=== PATIENT | female | born 1965 | race Caucasian/White ===

== ENCOUNTER 2016-07-23 14:36 | Emergency (ER) | payer MEDICARE, MEDICAID ==
--- NOTE | ~2016-07-23 | ER ---
PATIENT'S NAME: ROCKY CHRISTOPHER [facility] AGE: 51 Y [address] ROOM: [place] [address] LOCATION: [facility] ADMIT DATE: 07/23/2016 ER/Outpatient Report DISCHARGE DATE: 07/23/2016 FAMILY PHYSICIAN: Eusebia Harry MD ATTENDING PHYSICIAN: Denny Wahl TIME OF ARRIVAL: 1435 hours. TIME OF EXAM: 1435 hours. CHIEF COMPLAINT: Chest pain. HISTORY OF PRESENT ILLNESS: The patient arrived per [facility], IV was in place, she was given aspirin x4, nitroglycerin sublingual x1, and Ativan 0.5 mg IV enroute. The patient states she has left-sided chest pain that goes into her left arm for the past 2 days. She described it as a pressure. It does not cause her to be short of breath. She has not been dizzy or lightheaded. She was hospitalized recently with exhaustion, dehydration, depression, and suicidal concerns. She states she was talking to her psych nurse today and they were concerned regarding the chest pain and wanted the patient to have it evaluated. ALLERGIES: CELEBREX, TORADOL, AND TRAMADOL. PAST MEDICAL HISTORY: Asthma, depression, anxiety with panic disorders, exhaustion, suicidal ideation, and fibromyalgia. PAST SURGICAL HISTORY: Cholecystectomy with ERCP, left hand, left wrist. SOCIAL HISTORY: The patient lives alone. Denies use of drugs, tobacco, or alcohol. REVIEW OF SYSTEMS: All negative other than those mentioned in the HPI. PHYSICAL EXAMINATION: VITAL SIGNS: She weighed 97.1 kg. Blood pressure is 128/69, pulse of 96, respirations 20, temp of 98, and O2 sat was 97% on room air. [place] Coma Scale is 15. PATIENT'S NAME: JOCELINE CHRISTOPHERRY Gail [facility] AGE: 51 Y [address] ROOM: [place] [address] LOCATION: [facility] ADMIT DATE: 07/23/2016 ER/Outpatient Report DISCHARGE DATE: 07/23/2016 FAMILY PHYSICIAN: Eusebia Harry MD ATTENDING PHYSICIAN: Denny Wahl GENERAL: She is awake, alert, and oriented x4. SKIN: [place], warm, and dry. RESPIRATIONS: Even and nonlabored. LUNGS: Lung sounds are clear throughout. HEART: Regular rate and rhythm. Monitor shows a sinus rhythm. ABDOMEN: Soft and nondistended. Bowel sounds are present. EXTREMITIES: No peripheral edema noted. Positive peripheral pulses. LABORATORY DATA: EKG was completed shows a sinus rhythm. Lab work was drawn. CBC is within normal limits. Her Chem panel shows sodium is 141, potassium is 3.7, chloride is 108, and BUN is 8 with creatinine 0.9. CPK was 68 with CK-MB of less than 0.5, troponin was less than 0.040. EMERGENCY DEPARTMENT COURSE: The patient was monitored. She continued to show sinus rhythm. Vital signs remained stable. She states her pain is gone. Dr. Harry was contacted regarding this patient. IMPRESSION: Chest pain. PLAN: The patient will be discharged home. Rest. Fluids. She is scheduled to see Dr. Harry on Saturday. I did ask her as requested by Dr. Harry if she would be willing to have a Psych consult done and be placed in [facility] for her depression, she denies at this time, and does not want to talk to anybody from [facility]. I encouraged her to keep her appointment on Saturday with Dr. Harry in order to continue with her Psych evaluation as they have been doing. She verbalized understanding. ARDEN SOLANO APRN FOR MD ROSA VIEYRA/vinicio /[id number] d: 07/23/16 2305 t: 07/25/16 0832, OUTPATIENT REPORT
[~2016-07-23 14:36] MED LIST changes: -LIDOCAINE 5% TOP; -MAG-OX-400(241400 MG PO; -MINIPRESS2 MG PO; -PAXIL40 M1 PO; -PROTONIX20 M1 PO; -PROTONIX40 MG PO; -ZOSTRIX HP TOP
[2016-07-23 15:04] LABS: BASOPHIL % 0.4 %; HEMATOCRIT 43.4 % (33.0-46.0); HEMOGLOBIN 14.6 g/dL (10.0-15.0); IMMATURE GRANULOCYTE % 0.5 %; LYMPHOCYTE # 2.7 K/uL (0.8-4.0); MCH 29.2 pg (27.0-34.0); MCHC 33.6 gm/dL (32.0-36.5); MCV 86.8 fl (83.0-98.0); MONOCYTE # 0.7 K/uL (0.0-1.0); MONOCYTE % 8.1 %; MPV 9.5 fl (9.4-12.4); NRBC % 0 /100WBC (0-0.00); PLATELET COUNT 274 K/uL (150-450); RDW-CV 13.2 % (11.9-14.6); WBC 8.5 K/uL (4.0-11.0)
[2016-07-23 15:12] LABS: PROTIME 9.9 SECONDS (9.6-11.1); PTT 24 SECONDS (25-32)
[2016-07-23 15:26] LABS: ALBUMIN 3.7 gm/dL (3.5-5.0); ALK PHOS 100 IU/L (33-138); ALT 36 IU/L (12-78); ANION GAP 11.7 (10.0-19.0); AST 15 IU/L (10-40); BLOOD UREA NITROGEN 8 mg/dL (6-24); CALCIUM 8.8 mg/dL (8.5-10.5); CHLORIDE 108 mMol/L (96-110); CO2 25 mMol/L (22-32); CPK 68 IU/L (21-215); CREATININE 0.9 mg/dL (0.5-1.1); ESTIMATED GFR (MDRD EQUATION) > 60; MAGNESIUM 2.1 mg/dL (1.3-2.6); POTASSIUM 3.7 mMol/L (3.7-5.1); SODIUM 141 mMol/L (135-145)
[2016-07-23 15:28] LABS: TOTAL BILIRUBIN 0.3 mg/dL (0.0-1.5)
[2016-08-24] MEDS ORDERED: ZOSTRIX HP TOP (11:47)
[2016-08-24] MEDS ORDERED: LIDOCAINE 5% TOP (14:29)
[2016-11-20] MEDS ORDERED: PRISTIQ ER100 MG PO (00:46)
[2016-11-20] MEDS ORDERED: ATIVAN 1 MG1 MG PO (00:47)
[2016-11-20] MEDS ORDERED: PROTONIX20 M1 PO (00:48)
[2016-11-20] MEDS ORDERED: MINIPRESS2 MG PO (00:49)
[2016-11-20] MEDS ORDERED: LYRICA200 MG PO (00:50)
[2016-11-20] MEDS ORDERED: SEROQUEL50 MG PO ×2 (00:51→00:52)
[2016-11-20] MEDS ORDERED: ZANTAC (NON-FO150 MG PO (00:53)
[2016-11-20] MEDS ORDERED: ZANAFLEX4 MG PO (00:54)
[2016-11-20] MEDS ORDERED: MAG-OX-400(241400 MG PO (00:55)
[2016-11-22] MEDS ORDERED: PAXIL40 M1 PO (09:14)
== END 2016-07-23 16:02 | disposition disaster alternative care site (69) ==
LOC: GMED 14:36
PROVIDERS: Emergency Medicine
DX: R07.9 Chest pain, unspecified (principal); J45.909 Unspecified asthma, uncomplicated; F32.9 Major depressive disorder, single episode, unspecified; F41.9 Anxiety disorder, unspecified; Z90.49 Acquired absence of other specified parts of digestive tract; Z88.8 Allergy status to other drugs, medicaments and biological substances
CPT/HCPCS: J2060

== ENCOUNTER → 2016-07-23 | Outpatient (CLI) | payer MEDICARE, MEDICAID ==
[~2016-07-23] MED LIST: ADVIL200 MG PO; ATIVAN 1 MG1 MG PO; LIDOCAINE 5% IN2 ML TOP; LIDOCAINE 5% TOP; LYRICA200 MG PO; MAG-OX-400(241400 MG PO; MAGNESIUM250 MG PO; MINIPRESS1 MG PO; MINIPRESS2 MG PO; NEXIUM40 MG PO; PAXIL40 M1 PO; PRILOSEC20 MG PO; PRISTIQ ER100 MG PO; PROTONIX20 M1 PO; PROTONIX40 MG PO; PROVENTIL OR V6.7 GM INH; SEROQUEL50 MG PO; ZANAFLEX4 MG PO; ZANTAC (NON-FO150 MG PO; ZOSTRIX HP TOP
== END | disposition disaster alternative care site (69) ==
LOC: GAMB 14:23
DX: R07.9 Chest pain, unspecified (principal); Z79.899 Other long term (current) drug therapy; Z88.6 Allergy status to analgesic agent; Z88.5 Allergy status to narcotic agent; Z88.8 Allergy status to other drugs, medicaments and biological substances
CPT/HCPCS: A0425; A0427; J2060

== ENCOUNTER 2016-08-25 04:59 | Emergency (ER) | payer MEDICARE, MEDICAID ==
--- NOTE | ~2016-08-25 | ER ---
PATIENT'S NAME: ROCKY CHRISTOPHER [facility] AGE: 51 Y [address] ROOM: [place] [address] LOCATION: [facility] ADMIT DATE: 08/25/2016 ER/Outpatient Report DISCHARGE DATE: FAMILY PHYSICIAN: Physician, Unknown ATTENDING PHYSICIAN: Mely Song A HISTORY OF PRESENT ILLNESS: This is a 51-year-old female, who presented from [facility] for evaluation post fall. The patient was EPC (Emergency Protective Custody) and she is on suicide precautions there. The patient had complained of some vertigo, which she has a history of, but it is worse now. She says she fell almost 11 hours ago. She says that she was dizzy, vertiginous, and fell down. She denies any loss of consciousness. She complains currently of a headache, neck pain, and bruising on the left side of her face. So, that is why she was sent in. The patient denied any photophobia. No nausea or vomiting. No other complaints at this time. PAST MEDICAL HISTORY: Includes 1. Asthma. 2. Fibromyalgia. 3. Panic disorder. 4. Borderline personality disorder. 5. Depression. 6. Gastroparesis. PAST SURGICAL HISTORY: Includes 1. Cholecystectomy. 2. ERCP (endoscopic retrograde cholangiopancreatography). 3. Left wrist surgery. 4. Hand surgery. SOCIAL HISTORY: She says she does not smoke, drink, or use any drugs. MEDICATIONS: Please see medications list. ALLERGIES: PLEASE SEE MEDICATIONS LIST. REVIEW OF SYSTEMS: Reviewed by me and were negative with the exception of those discussed in the PATIENT'S NAME: ROCKY CHRISTOPHER [facility] AGE: 51 Y [address] ROOM: [place] [address] LOCATION: [facility] ADMIT DATE: 08/25/2016 ER/Outpatient Report DISCHARGE DATE: FAMILY PHYSICIAN: Physician, Unknown ATTENDING PHYSICIAN: Mely Song A history of present illness. PHYSICAL EXAMINATION: VITAL SIGNS: Blood pressure is 144/78, heart rate is 80, respiratory rate is 18, temperature is 98.9, and saturating 97% on room air. GENERAL: The patient is slightly sleepy. She is alert and oriented, though x4 to person, place, and situation. She knows the year. HEENT: She does not have any signs of posterior head trauma. No signs of hematomas. On her feet, she does have swelling and bruising on the left side of her face and her eye, but she has no entrapment. She has no malocclusion. She has no real facial tenderness except right under that left eye. Her jaw was intact. She has no bony tenderness at all. SPINE: She has some mild C-spine tenderness as well. No paraspinal C-spine tenderness. No TLS (thoracic, lumbar, and sacral) spine tenderness. HEART: Regular rate and rhythm. She has no chest wall tenderness. GASTROINTESTINAL: No abdominal tenderness. EXTREMITIES: She was able to move all extremities without any difficulty. NEUROLOGICAL: Able to do lymlcr-xces-ozlrix testing. Otherwise, appeared well. DIAGNOSTIC STUDIES AND RECOMMENDATIONS: The patient was given meclizine and some Tylenol. We then did imaging. The CT cervical spine did show acute fracture. CT of head with no intracranial abnormality. Then, the facial CT showed no facial fracture, but left periorbital swelling and left premaxillary facial contusion. Discussed this with the patient. She will be sent back to [facility]. IMPRESSION: Fall, left facial injury. MD YUDY FALL/vinicio /[id number] d: 08/25/1608 t: 09/19/161810, OUTPATIENT REPORT
[~2016-08-25 04:59] MED LIST changes: -MAG-OX-400(241400 MG PO; -MINIPRESS2 MG PO; -PAXIL40 M1 PO; -PROTONIX20 M1 PO; -PROTONIX40 MG PO
[2016-08-25] MEDS ORDERED: PROTONIX40 MG PO (11:51)
[2016-11-20] MEDS ORDERED: PRISTIQ ER100 MG PO (00:46)
[2016-11-20] MEDS ORDERED: ATIVAN 1 MG1 MG PO (00:47)
[2016-11-20] MEDS ORDERED: PROTONIX20 M1 PO (00:48)
[2016-11-20] MEDS ORDERED: MINIPRESS2 MG PO (00:49)
[2016-11-20] MEDS ORDERED: LYRICA200 MG PO (00:50)
[2016-11-20] MEDS ORDERED: SEROQUEL50 MG PO ×2 (00:51→00:52)
[2016-11-20] MEDS ORDERED: ZANTAC (NON-FO150 MG PO (00:53)
[2016-11-20] MEDS ORDERED: ZANAFLEX4 MG PO (00:54)
[2016-11-20] MEDS ORDERED: MAG-OX-400(241400 MG PO (00:55)
[2016-11-22] MEDS ORDERED: PAXIL40 M1 PO (09:14)
== END 2016-08-25 07:35 ==
LOC: GMED 04:59
DX: S00.83XA Contusion of other part of head, initial encounter (principal); J45.909 Unspecified asthma, uncomplicated; F32.9 Major depressive disorder, single episode, unspecified; W19.XXXA Unspecified fall, initial encounter

== ENCOUNTER → 2016-08-25 | Outpatient (CLI) | payer MEDICARE, MEDICAID ==
[~2016-08-25] MED LIST changes: +LIDOCAINE 5% TOP; +MAG-OX-400(241400 MG PO; +MINIPRESS2 MG PO; +PAXIL40 M1 PO; +PROTONIX20 M1 PO; +PROTONIX40 MG PO; +ZOSTRIX HP TOP
== END | disposition disaster alternative care site (69) ==
LOC: GAMB 04:39
DX: R42 Dizziness and giddiness (principal); F32.9 Major depressive disorder, single episode, unspecified; R69 Illness, unspecified; R51 Headache; Z79.899 Other long term (current) drug therapy; Z88.6 Allergy status to analgesic agent; Z88.5 Allergy status to narcotic agent
CPT/HCPCS: A0425; A0429

== ENCOUNTER → 2016-08-25 | Outpatient (CLI) | payer MEDICARE, MEDICAID | END | disposition disaster alternative care site (69) | LOC: GAMB 07:20 | DX: R51 Headache (principal); R42 Dizziness and giddiness; F32.9 Major depressive disorder, single episode, unspecified; Z79.899 Other long term (current) drug therapy; Z88.6 Allergy status to analgesic agent; Z88.8 Allergy status to other drugs, medicaments and biological substances | CPT/HCPCS: A0425; A0428 ==

== ENCOUNTER → 2016-09-15 | Emergency (ER) | payer MEDICARE, MEDICAID ==
[~2016-09-15] MED LIST changes: +MAG-OX-400(241400 MG PO; +MINIPRESS2 MG PO; +PAXIL40 M1 PO; +PROTONIX20 M1 PO; +PROTONIX40 MG PO
== END | disposition disaster alternative care site (69) ==
LOC: GAMB 02:48
DX: F41.9 Anxiety disorder, unspecified (principal); F32.9 Major depressive disorder, single episode, unspecified; Z79.899 Other long term (current) drug therapy; Z88.6 Allergy status to analgesic agent; Z88.5 Allergy status to narcotic agent; Z88.8 Allergy status to other drugs, medicaments and biological substances

== ENCOUNTER 2016-10-31 16:58 | Emergency (ER) | payer MEDICARE, MEDICAID ==
--- NOTE | ~2016-10-31 | ER ---
PATIENT'S NAME: ROCKY CHRISTOPHER [facility] AGE: 51 Y [address] ROOM: [place] [address] LOCATION: [facility] ADMIT DATE: 10/31/2016 ER/Outpatient Report DISCHARGE DATE: 10/31/2016 FAMILY PHYSICIAN: Physician, Unknown ATTENDING PHYSICIAN: Delio Mendez ADDENDUM: The patient was seen in conjunction with Dr. Mendez. Please see his dictation for complete details of the HPI. Briefly, the patient was seen at clinic. She was found to have some dizziness and was not feeling well and was referred here for further evaluation and plans to admit afterwards. The patient's labs were unremarkable other than elevated D-dimer, and thus, a CT scan was pending at the time of hand off. CT scan was obtained and was reported as unremarkable per Radiology. I discussed the case with Dr. Harry, the patient's provider, and she is recommending hospitalization for some psychiatric issues. I discussed this with the patient. She acquiesced. However, before the patient could be taken to the floor, she eloped from the emergency department. We did initiate the police to find the patient. Later, Dr. Harry was able to speak with the patient and convinced her to come in for re-evaluation. Please see subsequent encounter notes for details of that visit, however, there appeared to be no emergency medical condition for her current presentation. MD DION VIEYRA/vinicio /[id number] d: 11/01/16321 t: 11/03/16 0803, OUTPATIENT REPORT
--- NOTE | ~2016-10-31 | ER ---
PATIENT'S NAME: ROCKY CHRISTOPHER [facility] AGE: 51 Y [address] ROOM: [place] [address] LOCATION: [facility] ADMIT DATE: 10/31/2016 ER/Outpatient Report DISCHARGE DATE: 10/31/2016 FAMILY PHYSICIAN: Eusebia Harry MD ATTENDING PHYSICIAN: Delio Mendez Time of arrival: 1655 hours. Time of evaluation: 1655 hours. CHIEF COMPLAINT: Vertigo. HISTORY OF PRESENT ILLNESS: The patient is a 51-year-old female, who presents to the emergency department today with chief complaint of vertigo. She also reports the chest pain and shortness of breath. She is unsure of history anxiety due to the vertigo. She reports this started 5 hours prior to level. She reports she went to see her primary care doctor, Dr. Harry. When the nurse left the room, she apparently passed out. She denies any fevers or chills. No nausea or vomiting. Did have some diarrhea off and on, none currently. She does report of slight headache. Currently, reports of symptoms of 1 to 2/10 severity. She does report that the room is spinning. PAST MEDICAL HISTORY: 1. Anxiety. 2. Depression. 3. PTSD. 4. Vertigo. 5. Asthma. 6. Heart murmur. 7. Fibromyalgia. PAST SURGICAL HISTORY: 1. Left arm surgery x3. 2. Cholecystectomy. 3. ERCP. SOCIAL HISTORY: The patient denies any tobacco, alcohol, or illicit drug use. ALLERGIES: TO CELEBREX, TORADOL, AND TRAMADOL. MEDICATIONS: Please see list. PATIENT'S NAME: ROCKY CHRISTOPHER [facility] AGE: 51 Y [address] ROOM: [place] [address] LOCATION: [facility] ADMIT DATE: 10/31/2016 ER/Outpatient Report DISCHARGE DATE: 10/31/2016 FAMILY PHYSICIAN: Eusebia Harry MD ATTENDING PHYSICIAN: Delio Mendez REVIEW OF SYSTEMS: All systems are reviewed by myself are negative with the exception of those discussed in the HPI and past medical history. PHYSICAL EXAMINATION: VITAL SIGNS: Weight 94.6 kg, blood pressure 144/78, pulse 103, respiratory rate 18, temperature 98, oxygen saturation 95% on room air. GENERAL: The patient is a 51-year-old female, who appears stated age. She does keep her eyes closed due to what she reports severe symptoms, getting worse when they are open. Well developed and well nourished. HEENT: Normocephalic and atraumatic. Pupils are equal, round, and reactive to light and accommodation. Extraocular motions are intact. Nares are patent bilaterally. TMs are clear. Oropharynx is clear. NECK: Supple. There is no nuchal rigidity. CARDIOVASCULAR: Regular rate and rhythm. No murmurs, rubs, or gallop. LUNGS: Clear to auscultation bilaterally. No wheezes, rales, or rhonchi. ABDOMEN: Soft, nontender, and nondistended. No rebound, rigidity, or guarding. MUSCULOSKELETAL: The patient moves all 4 extremities. NEUROLOGICAL: GCS 15. Alert and oriented x4. Cranial nerves 2 through 12 are intact. Normal finger to nose. Normal rapid hand movement. Equal senior enterprise architect strength bilaterally. Downward going toes. No clonus. 2/4 reflexes. SKIN: Warm and dry. No rashes or lesions noted. LABORATORY DATA AND X-RAYS: Labs and x-rays are obtained. EKG is obtained and is interpreted by myself, shows sinus rhythm with a rate 87 normal axis. Normal interval. No ST elevation, ST depression, T-wave inversions. CBC is unremarkable. Coags are normal. Magnesium is normal. CK is normal. D-dimer is 0.60. CMP is unremarkable. LFTs normal. CK-MB and troponin are normal. ProBNP is normal. CT scan of the brain that was on 08/[address] scan of the chest and PE study is pending. IMPRESSION: 1. Vertigo. 2. Chest pain, unclear etiology. 3. Questionable syncopal episode. 4. Initial visit. EMERGENCY DEPARTMENT COURSE: The patient was brought back to the examination room. Seen and evaluated by myself. IV is established. Laboratory analysis and imaging are obtained as described above. The laboratory analysis and imaging are reviewed by myself. The patient's D-dimer was elevated. The CT scan of the chest was ordered. It PATIENT'S NAME: ROCKY CHRISTOPHER [facility] AGE: 51 Y [address] ROOM: [place] [address] LOCATION: [facility] ADMIT DATE: 10/31/2016 ER/Outpatient Report DISCHARGE DATE: 10/31/2016 FAMILY PHYSICIAN: Eusebia Harry MD ATTENDING PHYSICIAN: Delio Mendez is pending at time of transfer of care. I did discuss the case with Dr. Wahl at shift change. Transfer of care has been made. Will follow up on the CT imaging and contact Dr. Harry. DISPOSITION: Will be per Dr. Wahl. Further impression per Dr. Wahl. DO ANGELA ANTONIO/modl /[id number] d: 11/01/16 1132 t: 11/10/16 1503, OUTPATIENT REPORT
[~2016-10-31 16:58] MED LIST changes: -MAG-OX-400(241400 MG PO; -MINIPRESS2 MG PO; -PAXIL40 M1 PO; -PROTONIX20 M1 PO
[2016-10-31 17:23] LABS: BASOPHIL % 0.3 %; HEMATOCRIT 44.4 % (33.0-46.0); HEMOGLOBIN 15.2 g/dL (10.0-15.0); IMMATURE GRANULOCYTE % 0.2 %; LYMPHOCYTE % 22.4 %; MCH 29.5 pg (27.0-34.0); MCHC 34.2 gm/dL (32.0-36.5); MCV 86.2 fl (83.0-98.0); MONOCYTE # 0.7 K/uL (0.0-1.0); MONOCYTE % 8.2 %; MPV 9.4 fl (9.4-12.4); NEUTROPHIL # (ANC) 6.1 K/uL (1.8-7.8); NEUTROPHIL % 68.9 %; NRBC % 0 /100WBC (0-0.00); PLATELET COUNT 250 K/uL (150-450); RBC 5.15 M/uL (3.50-5.50); WBC 8.8 K/uL (4.0-11.0)
[2016-10-31 17:41] LABS: ALBUMIN 3.9 gm/dL (3.5-5.0); ALK PHOS 93 IU/L (33-138); ALT 68 IU/L (12-78); ANION GAP 11.5 (10.0-19.0); AST 28 IU/L (10-40); BLOOD UREA NITROGEN 11 mg/dL (6-24); CALCIUM 8.8 mg/dL (8.5-10.5); CHLORIDE 109 mMol/L (96-110); CO2 24 mMol/L (22-32); CPK 73 IU/L (21-215); CREATININE 0.9 mg/dL (0.5-1.1); ESTIMATED GFR (MDRD EQUATION) > 60; MAGNESIUM 2.1 mg/dL (1.8-2.6); POTASSIUM 3.5 mMol/L (3.7-5.1); SODIUM 141 mMol/L (135-145); TOTAL PROTEIN 7.2 g/dL (6.0-8.4)
[2016-10-31 17:42] LABS: INR - (THERAPEUTIC) 0.95 (0.92-1.07); PTT 24 SECONDS (25-32)
[2016-10-31 17:43] LABS: TOTAL BILIRUBIN 0.5 mg/dL (0.0-1.5)
[2016-10-31 18:30] LABS: BILIRUBIN URINE NEGATIVE (NEGATIVE); BLOOD URINE 10 /UL (NEGATIVE); GLUCOSE URINE NEGATIVE (NEGATIVE); KETONE URINE NEGATIVE (NEGATIVE); LEUKOCYTES URINE NEGATIVE /UL (NEGATIVE); NITRITE URINE NEGATIVE (NEGATIVE); PROTEIN URINE NEGATIVE (NEGATIVE); UROBILINOGEN URINE NORMAL (NORMAL)
[2016-10-31 18:31] LABS: COLOR URINE YELLOW (YELLOW); TURBIDITY URINE CLEAR (CLEAR)
[2016-10-31 18:41] LABS: BACTERIA URINE RARE (NEGATIVE); EPITHELIAL URINE 0-2 #/HPF (NEGATIVE); RBC URINE 0-2 #/HPF (NEGATIVE); WBC URINE 0-2 #/HPF (NEGATIVE)
[2016-11-20] MEDS ORDERED: PRISTIQ ER100 MG PO (00:46)
[2016-11-20] MEDS ORDERED: ATIVAN 1 MG1 MG PO (00:47)
[2016-11-20] MEDS ORDERED: PROTONIX20 M1 PO (00:48)
[2016-11-20] MEDS ORDERED: MINIPRESS2 MG PO (00:49)
[2016-11-20] MEDS ORDERED: LYRICA200 MG PO (00:50)
[2016-11-20] MEDS ORDERED: SEROQUEL50 MG PO ×2 (00:51→00:52)
[2016-11-20] MEDS ORDERED: ZANTAC (NON-FO150 MG PO (00:53)
[2016-11-20] MEDS ORDERED: ZANAFLEX4 MG PO (00:54)
[2016-11-20] MEDS ORDERED: MAG-OX-400(241400 MG PO (00:55)
[2016-11-22] MEDS ORDERED: PAXIL40 M1 PO (09:14)
== END 2016-10-31 19:10 | disposition disaster alternative care site (69) ==
LOC: GMED 16:58 → G3N 19:19
PROVIDERS: Emergency Medicine
DX: R42 Dizziness and giddiness (principal); R07.9 Chest pain, unspecified; F32.9 Major depressive disorder, single episode, unspecified; F41.9 Anxiety disorder, unspecified; F43.10 Post-traumatic stress disorder, unspecified; J45.909 Unspecified asthma, uncomplicated; M79.7 Fibromyalgia; Z90.49 Acquired absence of other specified parts of digestive tract; Z98.890 Other specified postprocedural states; Z88.8 Allergy status to other drugs, medicaments and biological substances; Z79.899 Other long term (current) drug therapy
CPT/HCPCS: J7030; Q9967

== ENCOUNTER → 2016-11-03 | Outpatient (CLI) | payer MEDICARE, MEDICAID ==
[~2016-11-03] MED LIST changes: +MAG-OX-400(241400 MG PO; +MINIPRESS2 MG PO; +PAXIL40 M1 PO; +PROTONIX20 M1 PO
== END | disposition disaster alternative care site (69) ==
LOC: GAMB 16:44
DX: R42 Dizziness and giddiness (principal); F32.9 Major depressive disorder, single episode, unspecified; F43.10 Post-traumatic stress disorder, unspecified; F60.89 Other specific personality disorders; Z79.899 Other long term (current) drug therapy; Z88.6 Allergy status to analgesic agent; Z88.8 Allergy status to other drugs, medicaments and biological substances

== ENCOUNTER → 2017-02-05 | Outpatient (CLI) | payer MEDICARE, MEDICAID | END | disposition disaster alternative care site (69) | LOC: GKIC 09:51 | DX: M25.511 Pain in right shoulder (principal); S49.91XA Unspecified injury of right shoulder and upper arm, initial encounter; M75.81 Other shoulder lesions, right shoulder; S46.811A Strain of other muscles, fascia and tendons at shoulder and upper arm level, right arm, initial encounter; X58.XXXA Exposure to other specified factors, initial encounter ==